=== PATIENT | male | born 1935 | race Caucasian/White ===

== ENCOUNTER 2016-06-12 13:03 | Emergency (ER) | payer MEDICARE, OTHER ==
[~2016-06-12] VITALS: Ht 177.8 cm; Wt 85.0 kg
[2016-06-12 13:04] VITALS: BP 112/76; PULSE 90; RESP 20; TEMP 98; O2SAT 97
[2016-06-12] MEDS ORDERED: TAMS5CAP PO (14:31)
[2016-06-12] MEDS ORDERED: FISH1000 PO (14:31)
[2016-06-12] MEDS ORDERED: BACT800T5 PO (14:31)
[2016-06-12] MEDS ORDERED: FERR140T PO (14:31)
[2016-06-12] MEDS ORDERED: DORZ1SOL2 EACH EYE (14:31)
[2016-06-12] MEDS ORDERED: FINA5TAB2 PO (14:31)
[2016-06-12] MEDS ORDERED: CITR500T PO (14:31)
[2016-06-12] MEDS ORDERED: BRIM0.155 EACH EYE (14:31)
[2016-06-12] MEDS ORDERED: MULTTAB67 PO (14:32)
[2016-06-12] MEDS ORDERED: VITA1000 PO (14:32)
[2016-06-12] MEDS ORDERED: PROZ40CA PO (14:32)
[2016-06-12] MEDS ORDERED: SLOWTAB PO (14:32)
[2016-06-12] MEDS ORDERED: OMEP20TA PO (14:32)
[2016-06-12] MEDS ORDERED: LUMI0.01 EACH EYE (14:32)
[2016-06-12] MEDS ORDERED: PRAV10TA PO (14:32)
--- NOTE | 2016-06-12 14:34 | PD ---
HPI Chief Complaint: Nosebleed Time Seen by Provider: 14:23 Travel History International Travel<30 days: No Contact w/Intl Traveler<30days: No History of Present Illness HPI The patient is a 80-year-old male who presents emergency department for nose bleed. The patient states his nosebleed started morning approximately 4 AM. The patient was evaluated at [facility] and [place], [place] and had bilateral nasal packing applied. The [facility] was [facility] on-[facility]. The patient states he does take Coumadin and they did not give him instructions on whether to stop the Coumadin or continue, therefore , he took his Coumadin dose last night. The patient states he continues to have some seeping from the anterior nares as well as the posterior oropharynx. The patient is had multiple episodes of coughing secondary to the blood down the posterior aspect of his throat, and will cough up blood clots. The patient does have a history of previous nasal injury from playing football in the 1949s with a perforated septum and had a septoplasty performed last August in [place] by his ear nose and throat physician. The patient states he called an ear nose and throat physician, Dr. Dc, and they advised him to come to the emergency department. PFSH Past Medical History Hx Anticoagulant Therapy: Yes Cardiovascular Problems: Yes Cerebrovascular Accident: Yes Respiratory: Yes Past Surgical History Narrative Surgical Septoplasty Social History Tobacco Use: No Allergies-Medications (Allergen,Severity, Reaction): Coded Allergies: Penicillin (Verified Allergy, Severe, Hives, 06/12/16) Reported Meds & Prescriptions Reported Meds & Active Scripts Active Reported Slow-Mag (Magnesium Chloride-Calcium Carbonate) 71.5-119 Mg Tab 64 Tab PO BID Vitamin D-1000 (Cholecalciferol) 1,000 Unit Tab 1,000 Units PO DAILY Prozac (Fluoxetine HCl) 40 Mg Cap 40 Mg PO DAILY Pravastatin 10 Mg Tab 10 Mg PO HS Omeprazole 20 Mg Tab 20 Mg PO DAILY Multiple Vitamin 1 Tab 1 Tab PO DAILY Lumigan Opth Drops (Bimatoprost) 0.01% Soln 1 Drop EACH EYE HS Flomax (Tamsulosin HCl) 0.4 Mg Cap 0.4 Mg PO DAILY Fish Oil (Lyons-3 Fatty Acids) 1,000 Mg Cap 2,000 Mg PO DAILY Finasteride 5 Mg Tab 5 Mg PO DAILY Do not crush. Ferrous Sulfate ER (Ferrous Sulfate) 140 Mg Tab 140 Mg PO DAILY Cosopt Opth Drops (Dorzolamide-Timolol Opth Drops) 22.3-6.8 Mg/Ml Soln 1 Drop EACH EYE BID Citrucel (Methylcellulose) 500 Mg Tab 2 Tab PO DAILY Bactrim DS (Sulfamethoxazole-Trimethoprim) 800-160 Mg Tab 1 Tab PO BID Brimonidine Opth Drops (Brimonidine Tartrate) 0.15% Soln 1 Drop EACH EYE TID Review of Systems Except as stated in HPI: all other systems reviewed are Neg HENT: Positive: Nosebleed, No: Lightheadedness Cardiovascular: No: Chest Pain or Discomfort Respiratory: No: Shortness of Breath Gastrointestinal: Positive: Nausea, No: Vomiting Musculoskeletal: No: Weakness Neurologic: No: Dizziness Physical Exam Narrative GENERAL: Awake, alert, pleasant 80-year-old male who appears his stated age and is in no acute respiratory distress. SKIN: Focused skin assessment warm/dry. HEAD: Atraumatic. Normocephalic. EYES: Pupils equal and round. No scleral icterus. No injection or drainage. ENT: Patient has nasal packing, appears to be Rhinorockets to the nares bilaterally with some dried crusting but no obvious bleeding out of the naris. The patient does have visible blood with blood clots in the posterior oropharynx. NECK: Trachea midline. No JVD. CARDIOVASCULAR: Irregularly irregular. RESPIRATORY: No accessory muscle use. Clear to auscultation. Breath sounds equal bilaterally. MUSCULOSKELETAL: No obvious deformities. No clubbing. No cyanosis. No edema. NEUROLOGICAL: Awake and alert. No obvious cranial nerve deficits. Motor grossly within normal limits. Normal speech. PSYCHIATRIC: Appropriate mood and affect; insight and judgment normal. Data Data Last Documented VS Vital Signs Date Time Temp Pulse Resp B/P Pulse Ox O2 Delivery O2 Flow Rate FiO2 06/12/16 16:00 73 14 125/65 99 Room Air 06/12/16 13:04 98.0 Orders Complete Blood Count With Diff (06/12/16 14:29) Basic Metabolic Panel (Bmp) (06/12/16 14:29) Act Partial Throm Time (Ptt) (06/12/16 14:29) Prothrombin Time / Inr (Pt) (06/12/16 14:29) Labs Laboratory Tests Test 06/12/16 14:38 White Blood Count 5.5 TH/MM3 Red Blood Count 3.58 MIL/MM3 Hemoglobin 11.1 GM/DL Hematocrit 31.5 % Mean Corpuscular Volume 87.8 FL Mean Corpuscular Hemoglobin 30.8 PG Mean Corpuscular Hemoglobin 35.1 % Concent Red Cell Distribution Width 15.4 % Platelet Count 118 TH/MM3 Mean Platelet Volume 8.8 FL Neutrophils (%) (Auto) 60.1 % Lymphocytes (%) (Auto) 24.7 % Monocytes (%) (Auto) 14.1 % Eosinophils (%) (Auto) 0.9 % Basophils (%) (Auto) 0.2 % Neutrophils # (Auto) 3.3 TH/MM3 Lymphocytes # (Auto) 1.4 TH/MM3 Monocytes # (Auto) 0.8 TH/MM3 Eosinophils # (Auto) 0.0 TH/MM3 Basophils # (Auto) 0.0 TH/MM3 CBC Comment DIFF FINAL Differential Comment Prothrombin Time 24.4 SEC Prothromb Time International 2.1 RATIO Ratio Activated Partial 32.0 SEC Thromboplast Time Sodium Level 139 MEQ/L Potassium Level 4.4 MEQ/L Chloride Level 108 MEQ/L Carbon Dioxide Level 25.0 MEQ/L Anion Gap 6 MEQ/L Blood Urea Nitrogen 32 MG/DL Creatinine 1.08 MG/DL Estimat Glomerular Filtration 65 ML/MIN Rate Random Glucose 95 MG/DL Calcium Level 9.0 MG/DL MDM Medical Decision Making Medical Screen Exam Complete: Yes Emergency Medical Condition: Yes Medical Record Reviewed: Yes Interpretation(s) Laboratory Tests Test 06/12/16 14:38 White Blood Count 5.5 TH/MM3 Red Blood Count 3.58 MIL/MM3 Hemoglobin 11.1 GM/DL Hematocrit 31.5 % Mean Corpuscular Volume 87.8 FL Mean Corpuscular Hemoglobin 30.8 PG Mean Corpuscular Hemoglobin 35.1 % Concent Red Cell Distribution Width 15.4 % Platelet Count 118 TH/MM3 Mean Platelet Volume 8.8 FL Neutrophils (%) (Auto) 60.1 % Lymphocytes (%) (Auto) 24.7 % Monocytes (%) (Auto) 14.1 % Eosinophils (%) (Auto) 0.9 % Basophils (%) (Auto) 0.2 % Neutrophils # (Auto) 3.3 TH/MM3 Lymphocytes # (Auto) 1.4 TH/MM3 Monocytes # (Auto) 0.8 TH/MM3 Eosinophils # (Auto) 0.0 TH/MM3 Basophils # (Auto) 0.0 TH/MM3 CBC Comment DIFF FINAL Differential Comment Prothrombin Time 24.4 SEC Prothromb Time International 2.1 RATIO Ratio Activated Partial 32.0 SEC Thromboplast Time Sodium Level 139 MEQ/L Potassium Level 4.4 MEQ/L Chloride Level 108 MEQ/L Carbon Dioxide Level 25.0 MEQ/L Anion Gap 6 MEQ/L Blood Urea Nitrogen 32 MG/DL Creatinine 1.08 MG/DL Estimat Glomerular Filtration 65 ML/MIN Rate Random Glucose 95 MG/DL Calcium Level 9.0 MG/DL Differential Diagnosis Differential diagnoses includes coagulopathy, Coumadin toxicity, septal perforation, anterior epistaxis, posterior epistaxis, anemia, thrombocytopenia. Narrative Course IV was established, labs are drawn and sent, and the patient was placed on cardiac telemetry monitoring and continuous pulse oximetry monitoring. Attempts was made to obtain the patient's medical records from [facility] yesterday to ascertain exactly what size Rhino Rocket was applied. Labs were sent to evaluate hemoglobin, platelets, and INR. INR is therapeutic at 2.1, hemoglobin 11.1, platelets 118. I reviewed the patient's report from [facility], his platelets there were 114 and Coumadin/ INR level was 2.34. The patient is reevaluated, has no diffuse or persistent bleeding, occasionally has a small amount of dribbling down the posterior oropharynx. I discussed the patient with the on-call ENT, Dr. Steen. We had a discussion regarding 23 hour observation reversal of Coumadin versus conservative treatment with ice packs and outpatient follow-up. The patient has a history of persistent atrial fibrillation with previous stroke, I had a discussion with the patient and it was agreed we would do conservative management with ice packs and outpatient follow-up. The patient is advised that if the bleeding is profuse and significant to return to the emergency department and he will have to be reversed with vitamin K and/or FFP. Patient is comfortable with this plan of care and disposition. The patient will be provided a copy of his lab results at discharge. Diagnosis Primary Impression: Epistaxis Referrals: John Steen MD call for appointment Call on Wednesday for an appointment on either Wednesday or . Patient Instructions: General Instructions Additional Instructions: Ice over the nasal bridge as needed. Hold pressure as needed. Continue antibiotics as previously directed. Follow-up with ENT, call the office on Wednesday to be evaluated for removal on Wednesday or . Return if symptoms worsen or progress significantly for anticoagulation reversal. Med/Other Pt SpecificInfo: No Change to Meds Disposition: 01 DISCHARGE HOME Condition: Stable Felice Josue MD Jun 12, 2016 14:34
[2016-06-12 14:54] LABS: AUTOMATED NEUTROPHIL # 3.3 TH/MM3 (1.8-7.7); BASOPHIL % 0.2 % (0.0-2.0); EOSINOPHIL % 0.9 % (0.0-4.0); HEMATOCRIT 31.5 % (39.0-51.0); HEMO FLAGS DIFF FINAL; LYMPH % 24.7 % (9.0-44.0); LYMPHOCYTE # 1.4 TH/MM3 (1.0-4.8); MEAN CELL VOLUME 87.8 FL (80.0-100.0); MEAN CORPUSCULAR HEMOGLOBIN 30.8 PG (27.0-34.0); MEAN CORPUSCULAR HGB CONC 35.1 % (32.0-36.0); MONO % 14.1 % (0.0-8.0); NEUT % 60.1 % (16.0-70.0); PLATELET COUNT 118 TH/MM3 (150-450); RED BLOOD COUNT 3.58 MIL/MM3 (4.50-5.90); RED CELL DISTRIBUTION WIDTH 15.4 % (11.6-17.2); WHITE BLOOD COUNT 5.5 TH/MM3 (4.0-11.0)
[2016-06-12 14:59] LABS: INTERNATIONAL NORMALIZED RATIO 2.1 RATIO; PROTHROMBIN TIME - PATIENT 24.4 SEC (9.8-11.6)
[2016-06-12 15:13] LABS: POTASSIUM 4.4 MEQ/L (3.5-5.1)
[2016-06-12 16:00] VITALS: BP 125/65; PULSE 73; RESP 14; O2SAT 99
== END 2016-06-12 16:54 | disposition home or self-care (01) ==
LOC: EDBD → NEPE 13:03
DX: R04.0 Epistaxis (principal); R05 Cough; Z79.01 Long term (current) use of anticoagulants
CPT/HCPCS: 80048; 85025; 85610; 85730; 99283